=== PATIENT | female | born 1970 | race Two or more races ===

== ENCOUNTER 2024-07-07 07:46 | Day surgery (SDC) | payer OTHER ==
[2024-07-07] MEDS ORDERED: fentaNYL CITRATE 50 MCG/ML AMPUL IV PUSH ONE (13:45)
[2024-07-07] MEDS ORDERED: DIPHENHYDRAMINE HCL 50 MG/ML VIAL 1ML IV ONE (13:45)
[2024-07-07] MEDS ORDERED: MIDAZOLAM HCL 2 MG/2 ML VIAL IV ONE (13:45)
== END 2024-07-07 14:50 | disposition home or self-care (01) ==
LOC: AMB-ENDOS 07:46
PROVIDERS: ATTEND Colon & Rectal Surgery
DX: D12.5 Benign neoplasm of sigmoid colon (principal); K63.5 Polyp of colon; Z91.013 Allergy to seafood